=== PATIENT | male | born 1960 | race Caucasian/White ===

== ENCOUNTER 2018-09-23 11:58 | Emergency (ER) | payer MEDICAID ==
[~2018-09-23] VITALS: Ht 177.8 cm; Wt 74.8 kg
--- NOTE | 2018-09-23 12:35 | NUR ---
tessa provided. [facility] head to [facility] provided for pt. all the clothing soaked in urine removed and hospital gown provided hospital lunch tray provided.
--- NOTE | 2018-09-23 13:28 | NUR ---
fercho, social welfare administrator at bedside.
--- NOTE | 2018-09-23 14:50 | NUR ---
OMAR received a consult request at 1:20pm. OMAR arrived to ED and met with ARTIE Jones and Dr. Morse regarding patient's case. OMAR then met with patient, who was in his assigned ED bed and receptive to meeting with OMAR. Patient is a 58 year old homeless male brought in by paramedics for shoulder pain. Patient stated that he had fallen. Patient is alert and oriented x 3. Patient stated he has been homeless was nearly 20 years, however expressed wanting to go to a fdc. SW informed patient about the [facility] locations and patient expressed wanting to remain in the [facility] and go to the [facility] in [place]. Patient reported use of alcohol (beer), however had not had a drink in nearly 4 days. Patient was currently not under the influence of any alcohol. Patient denied drug use. SW asked patient if he had any family or friends that SW could contact for him, and patient stated he did not have anyone to contact. ARTIE Jones provided patient with a meal tray and clean clothes. OMAR provided patient with the following resources: 1) Names and pick-up locations for the [facility] ([facility] [phone] and [facility] [phone]. Patient agreed to go to the [facility], and OMAR informed him that he would need to be at the molded goods spot picker location of [address] [place] [address] at 5:15pm when the van would come by to pick him up to take him to the fdc. Patient agreed. Patient will be sent to this location with a taxi. Taxi voucher provided to ARTIE Jones to make arrangements. 2) The [facility] Homeless Resource Directory which includes information on locations and days/times throughout the [facility] for food pantries, hot meals, showers, and sack lunches. 3) Mental Health Services: [facility] ([address] [place]); [facility] ([address] floor, [place]); [facility] ([address] [facility] ( [facility],. [place]) 4) HealthCare Clinics: [facility] ([address], [place]); [facility] ([address], [place]); [facility] ([address]). 5) Pharmacies: list of [employer] and [facility] pharmacies throughout the [facility] 6) Drug/Alcohol Rehab resources: [facility] ([address]); [facility] ([address] [facility] [address]); [facility] ([address] [place]). The above resources were reviewed with the patient and patient expressed understanding. ARTIE Jones also present. Patient signed the homeless patient waiver form. All above resources were filed in patient's ED chart. ARTIE Jones to call taxi when patient is ready to be discharged, and taxi to transport patient to the [facility] molded goods spot picker location [address]
--- NOTE | 2018-09-23 15:43 | NUR ---
PROVIDED PT WITH CLEAN CLOTHING. ALL THE REMOVED SOILED CLOTHING GIVEN TP PT.
--- NOTE | 2018-09-23 16:02 | NUR ---
Patient discharged to home in stable conditon. Written and verbal after care instructions given. Patient verbalizes understanding of instructions.PX OF ANTI BIOTIC PROVIDED WITH THE INFO ON WHO TO OBTAIN THE MEDS. PT WALKS IN STEADY GAIT, PTAXOX4, EXPLAINED AGAIN TO THE PT THE PLAN OF CARE. PT AGREED THAT HE WILL BE TAKEN TO [facility] FOR [facility]. EXTRA SANDWICH AND JUICE PROVIDED. PT D/RENATO TO TAXI WITH VOUCHER. PT D/RENATO FOLLOWING THE MANAGEMENT OF HOME LESS DISCHARGR HOSPITAL POLICY.
[2018-09-23 16:19] VITALS: BP 165/89
== END 2018-09-23 16:01 | disposition home or self-care (01) ==
LOC: ER 11:58
DX: S01.311A Laceration without foreign body of right ear, initial encounter (principal); L08.9 Local infection of the skin and subcutaneous tissue, unspecified; S40.011A Contusion of right shoulder, initial encounter; Z59.0 Homelessness; W19.XXXA Unspecified fall, initial encounter; Y93.89 Activity, other specified; Y92.89 Other specified places as the place of occurrence of the external cause; Y99.8 Other external cause status
CPT/HCPCS: 73030; A4217; A4663